=== PATIENT | male | born 1930 | race Caucasian/White ===

== ENCOUNTER → 2016-10-24 | Outpatient (CLI) | payer OTHER ==
[~2016-10-24] MED LIST: ACID CONTROL20 MG PO; ACID CONTROLLER20 MG PO; AMIODARONE PO; ASPIRIN81 MG PO; CORDARONE200 M1 PO; DARVOCET-N 1001 TA1 PO; ELIQUIS2.5 MG PO; FISH OIL + D31 EACH PO; FISH OIL 1,0001 CA2 PO; FISH OIL 1,0001 CAP PO; FISH OIL 1,2001 EAC2 PO; FISH OIL300 MG PO; FISH OIL500 M1 PO; GUAIFENESIN600 M1 PO; LIPITOR40 MG PO; LOPRESSOR PO; MEDROL4 MG/DOSE- PO; MUCUS RELIEF DM1 TA1 PO; MULTI VITAMIN1 EACH PO; MULTI-VITAMIN1 TAB; MULTIVITAMIN1 UDCAP PO; NITROGLYGERIN0.4 MG SL; NORVASC PO; NORVASC10 MG PO; OMEGA 3 FISH OI1 CAP PO; PACERONE PO; PROTONIX PO; SENNA S TABLET1 TAB PO; SENNA-S TABLET1 EAC1 PO; SENOKOT S1 TA1 PO; ST JOSEPH ASPIR81 MG PO; ZYVOX600 MG PO; [UNRECOGNIZED DRUG - OTHER]; [UNRECOGNIZED DRUG - OTHER] PO
[2016-10-24 12:58] LABS: ALBUMIN SERUM 2.7 g/dL (3.5-5.0); BILIRUBIN,TOTAL 0.7 mg/dL (0.2-2.0); BUN/CREATININE RATIO 16.29; CALCIUM SERUM 8.8 mg/dL (8.4-10.2); CREATININE SERUM 2.7 mg/dL (0.6-1.4); GLOM FILT RATE Estimated 20.7 mL/min (>60); PHOSPHOROUS 3.7 mg/dL (2.5-4.6); POTASSIUM 4.3 mmol/L (3.5-5.1); PROTEIN TOTAL SERUM 6.6 g/dL (6.0-8.3); URIC ACID 4.4 mg/dL (2.6-7.2)
[2016-10-29 13:10] LABS: CALCIUM (PTHINTACT) 8.9 mg/dL (8.6-10.3)
== END | disposition home or self-care (01) ==
LOC: CLAB 11:59
PROVIDERS: Internal Medicine Nephrology
DX: N18.4 Chronic kidney disease, stage 4 (severe) (principal); N25.81 Secondary hyperparathyroidism of renal origin
CPT/HCPCS: 36415; 80053; 82310; 83970; 84100; 84550

== ENCOUNTER → 2017-02-06 | Outpatient (CLI) | payer OTHER ==
[2017-02-06 09:43] LABS: HEMATOCRIT 32.2 % (38.0-50.0); HEMOGLOBIN 10.3 gm/dL (13.0-16.0); MEAN CELL VOLUME 85.2 FL (83-96); MEAN CORPUSCULAR HEMOGLOBIN 27.3 PG (28-34); MEAN PLATELET VOLUME 7.2 FL (6.5-11.5); RED BLOOD COUNT 3.78 X10e (3.90-5.60); RED CELL DISTRIBUTION WIDTH 16.2 % (11.0-15.5); WHITE BLOOD COUNT 14.3 X10e3 (4.0-10.5)
[2017-02-06 09:52] LABS: URINE APPEARANCE CLEAR; URINE BILIRUBIN NEG (NEG); URINE BLOOD NEG (NEG); URINE COLOR YELLOW; URINE GLUCOSE NEG (NEG); URINE KETONE NEG (NEG); URINE LEUKOCYTE ESTERASE TRACE (NEG); URINE NITRATE NEG (NEG); URINE PH 5.5 (5-8); URINE PROTEIN 3+ (NEG); URINE SPECIFIC GRAVITY 1.017 (1.003-1.035)
[2017-02-06 09:55] LABS: URINE BACTERIA AUWI NEG (NEGATIVE); URINE SQUAMOUS EPITHELIAL CELL OCC /[HPF]; UWBCS1 AUWI 0-2 (0-5)
[2017-02-06 09:59] LABS: URINE SOURCE CLEAN CATCH
[2017-02-06 10:49] LABS: ALBUMIN SERUM 2.3 g/dL (3.5-5.0); BILIRUBIN,TOTAL 0.9 mg/dL (0.2-2.0); BUN/CREATININE RATIO 10.8; CALCIUM SERUM 8.6 mg/dL (8.4-10.2); CREATININE SERUM 2.5 mg/dL (0.6-1.4); GLOM FILT RATE Estimated 22.7 mL/min (>60); POTASSIUM 5.4 mmol/L (3.5-5.1); PROTEIN TOTAL SERUM 6.7 g/dL (6.0-8.3)
== END | disposition home or self-care (01) ==
LOC: CLAB 08:52
PROVIDERS: Internal Medicine Nephrology
DX: N18.4 Chronic kidney disease, stage 4 (severe) (principal); D63.1 Anemia in chronic kidney disease; N39.0 Urinary tract infection, site not specified
CPT/HCPCS: 36415; 80053; 81003; 85027; 87086